=== PATIENT | female | born 2000 | race Hispanic/Latino ===

== ENCOUNTER 2019-01-20 00:40 | Emergency (ER) | payer OTHER ==
[2019-01-20 02:22] LABS: #Basophils 0.1 thou/uL (0.0-0.2); #Lymphocytes 2.7 thou/uL (1.20-3.40); #Monocytes 0.7 thou/uL (0.11-0.59); %Basophils 0.8 % (0.0-1.0); %Eosinophils 0.3 % (0.0-10.0); %Lymphocytes 28.4 % (28.0-48.0); %Monocytes 7.1 % (0.0-4.0); %Neutrophils 63.4 % (31.0-61.0); Hemoglobin 13.7 g/dL (12.0-16.0); Mean Corpuscular HGB CONC 34.7 g/dL (32.0-36.0); Mean Corpuscular Hemoglobin 32.8 pg (25.0-35.0); Mean Corpuscular Volume 94.6 fL (78.0-98.0); Mean Platelet Volume 8.3 fL (7.4-10.4); Platelet Count 206 thou/uL (130-400); Red Blood Cell (RBC) Count 4.18 mill/uL (4.00-5.20); White Blood Cell (WBC) Count 9.5 thou/uL (4.8-10.8)
[2019-01-20 03:01] LABS: ALT (SGPT) 42 U/L (8-55); AST (SGOT) 31 U/L (5-34); Albumin 4.4 g/dL (3.5-5.0); Alkaline Phosphatase 64 U/L (40-150); Anion Gap 14 mmol/L (10-20); BUN (Urea Nitrogen) 12 mg/dL (7.0-18.7); Bilirubin, Total 0.3 mg/dL (0.2-1.2); Calc. Creatinine Clearance 0 mL/min (70-130); Calcium 9.6 mg/dL (7.8-10.44); Carbon Dioxide 19 mmol/L (22-29); Chloride 105 mmol/L (98-107); Estimated GFR-MDRD Greater than 90; Glucose 87 mg/dL (70-105); Lipase 16 U/L (8-78); Potassium 3.2 mmol/L (3.5-5.1); Protein, Total 7.4 g/dL (6.0-8.3); Sodium 135 mmol/L (136-145)
[2019-01-20 03:53] LABS: Bilirubin Negative (Negative); Blood, Urine Negative (Negative); Clarity CLEAR (Clear); Glucose, Urine (Dipstick) Negative (Negative); Leukocyte Negative (Negative); Nitrite Negative (Negative); Protein, Urine (Dipstick) Negative (Neg-Trace); Specific Gravity, Urine 1.014 (1.002-1.036); Urobilinogen 0.2 mg/dL (0.2-1.0); pH, Urine 6.5 (5.0-9.0)
[2019-01-20 23:35] LABS: Chlamydia by PCR Not Detected (NotDetected); GC by PCR Not Detected (NotDetected)
== END 2019-01-20 04:07 | disposition home or self-care (01) ==
LOC: ERS 00:40
DX: O99.89 Other specified diseases and conditions complicating pregnancy, childbirth and the puerperium (principal); R10.32 Left lower quadrant pain; Z3A.01 Less than 8 weeks gestation of pregnancy
CPT/HCPCS: 36415; 80053; 81003; 83690; 84702; 85025; 87086; 87480; 87491; 87510; 87591; 87660; 99284

== ENCOUNTER 2019-09-14 01:18 | Day surgery (SDC) | payer OTHER ==
[2019-09-14 02:01] VITALS: BMI 26.5
[2019-09-14] MEDS ORDERED: hydrALAZINE 20 MG/ML VIAL SLOW IVP PRN (02:24)
--- NOTE | 2019-09-14 02:32 | PDOC.FPROB ---
FMR OB H&P: HPI - History of Present Illness Chief Complaint: back pain Indentification: 19 y/o @ 40.0 WGA History of Present Illness: Reports lower back pain that started around 9:30 tonight and is not relieved with position changes. She reports some abdominal cramping. Denies ctx, LOF, vaginal bleeding, d/c. Endorses movement. Primary Care Physician: Dr. Hammer FMR OB H&P: History - Past Medical History PMH: Denies - OB History OB History: G1 - Surgical History Sx History: Denies - Social History Social History: Denies tobacco, EtOH, or drug use - Family History Family History: Denies FMR OB H&P: Medications - Current Allergies/Adverse Reactions: Allergies Allergy/AdvReac Type Severity Reaction Status Date / Time sulfamethoxazole Allergy Verified 09/14/19 01:54 [From Bactrim] trimethoprim [From Bactrim] Allergy Verified 09/14/19 01:54 FMR OB H&P: ROS - Review of Systems General: denies: fever/chills, weight/appetite/sleep changes Eyes: denies: vision changes, double vision ENT: denies: nasal congestion, sore throat Cardiovascular: denies: chest pain, edema Respiratory: denies: cough, shortness of breath Gastrointestinal: reports: cramping. denies: nausea Genitourinary (Female): denies: vaginal bleeding, contractions Musculoskeletal: denies: pain, swelling Neurologic: denies: numbness, weakness Integumentary: denies: itching, rash Endocrine: denies: cold intolerance, heat intolerance FMR OB H&P: Vital Signs - Maternal Vital signs: BP 120/80, HR 96, RR 16 - Heart Tones Baseline: 130 Variability: moderate Acceleration: present Deceleration: absent Category: category 1 [place] contractions every: intermittent FMR OB H&P: Physical Exam - Physical Exam General: NAD, awake, alert and oriented HEENT: MMM, conjunctiva clear, grossly normal vision, grossly normal hearing Neck: supple, no LAD Heart: pulses present, no edema General: no respiratory distress Abdomen: soft, gravid, non-tender Musculoskeletal: normal gait and station, pulses present Neurological: no focal deficit Skin: good tugor, capillary refill <2 seconds Psychiatric: intact recent and remote memory, good judgement and insight - Pelvic Exam SVE: 1.5/-3 FMR OB H&P: A/P - Problem List (1) Irregular contractions Current Visit: Yes Status: Acute Code(s): O62.2 - OTHER UTERINE INERTIA Assessment and Plan: Pt not dilated and having irregular ctx that she isn't feeling -Gave labor precautions -Will d/c home -Encouraged fluid hydration -Continue f/u with Dr. Hammer and for IOL on 09/17. (2) Term Current Visit: Yes Status: Acute Code(s): Z34.90 - ENCNTR FOR SUPRVSN OF NORMAL , UNSP, UNSP TRIMESTER Disposition: d/c home with labor precautions Discussion: Date/Time: 09/14/19 0230 This H&P was discussed with Dr. Wilson who agrees with the above documentation and plan. Signature: Melodie Martin MD, PGY-3 Addendum - Attending - Attending Attestation Date/Time: 09/14/19 0241 I personally evaluated the patient and discussed the management with Dr. Martin. I agree with the History, Examination, Assessment and Plan documented above.
== END 2019-09-14 02:48 | disposition home or self-care (01) ==
LOC: L&D/OP 01:18
PROVIDERS: ATTEND Obstetrics & Gynecology
DX: O47.1 False labor at or after 37 completed weeks of gestation (principal); O48.0 Post-term pregnancy; Z3A.40 40 weeks gestation of pregnancy; Z88.1 Allergy status to other antibiotic agents; Z88.2 Allergy status to sulfonamides
CPT/HCPCS: 99282

== ENCOUNTER 2019-09-17 19:15 | Inpatient (IN) | payer OTHER ==
--- NOTE | 2019-09-17 18:07 | PDOC.LDHP ---
Labor and Delivery H&P Chief complaint: scheduled induction HPI: Pt is a 19yo G1 @ 40.3 here for IOL. 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 Current medications: pre-aspen vitamins, iron, other (valtrex 1 gm a day) Previous surgical history: none Allergies/Adverse Reactions: Allergies Allergy/AdvReac Type Severity Reaction Status Date / Time sulfamethoxazole Allergy Verified 09/14/19 01:54 [From Bactrim] trimethoprim [From Bactrim] Allergy Verified 09/14/19 01:54 Social history: none - Vaginal Exam cm dilated: 2 Effacement: 25% Station: -2 - OB Labs Blood type: O RH: positive Antibody Screen: negative HIV: negative RPR: negative HEPSAg: negative 1 hour GCT: negative GBS: negative Urine drug screen: negative Rubella: non-immune Additional Labs: +CT with negative retest - Plan Plan: admit to L&D, cervical ripening, labor augmentation if indicated, informed consent obtained, anesthesia consult for pain management
[~2019-09-17 19:15] MED LIST: Bupivacaine 0.25% 10 ML VIAL ONE
[2019-09-17] MEDS ORDERED: NS / Oxytocin 40 units/1000ml 1,000 ML IV PRN (19:59)
[2019-09-17] MEDS ORDERED: Butorphanol Tartrate 1 MG/ML VIAL SLOW IVP PRN (19:59)
[2019-09-17] MEDS ORDERED: NS w/ Oxytocin 10 units 500 ML IV SCH (19:59)
[2019-09-17] MEDS ORDERED: Lidocaine 1% (PF) 30 ML VIAL SC PRN (19:59)
[2019-09-17] MEDS ORDERED: Ibuprofen 800 MG TAB PO PRN (19:59)
[2019-09-17] MEDS ORDERED: Ondansetron PF 4 MG/2 ML Vial IVP PRN (19:59)
[2019-09-17] MEDS ORDERED: hydrALAZINE 20 MG/ML VIAL SLOW IVP PRN (19:59)
[2019-09-17] MEDS ORDERED: Promethazine HCl 25 MG/ML VIAL IM PRN (19:59)
[2019-09-17] MEDS ORDERED: Misoprostol 100 MCG TAB VAG SCH (19:59)
[2019-09-17] MEDS ORDERED: HYDROcodone/Acetaminophen 5/325 mg Tablet PO PRN ×2 (19:59)
[2019-09-17] MEDS: Lactated Ringer's 1,000 ML IV SCH (20:30)
[2019-09-17 21:06] LABS: Hemoglobin 11.2 g/dL (12.0-16.0); Mean Corpuscular Hemoglobin 29.5 pg (27.0-31.0); Mean Corpuscular Volume 86.9 fL (78.0-98.0); Mean Platelet Volume 10.7 fL (7.4-10.4); Platelet Count 182 thou/uL (130-400); RBC Distribution Width 12.7 % (11.5-14.5); Red Blood Cell (RBC) Count 3.81 mill/uL (4.20-5.40); White Blood Cell (WBC) Count 8.5 thou/uL (4.8-10.8)
[2019-09-17 21:28] VITALS: BMI 26.5
[2019-09-17 21:46] LABS: Syphilis Antibody Nonreactive (Nonreactive); Syphilis Antibody Index 0.02 S/CO (<1.00 Non-Reactive)
[2019-09-18 00:56] LABS: HBSAg Index 0.24 S/CO (0-0.99); Hep B Surf Ag Non-Reactive S/CO (NonReactive)
[2019-09-18] MEDS: Lactated Ringer's 1,000 ML IV SCH ×2 (04:57→18:16)
--- NOTE | 2019-09-18 08:01 | PDOC.LDPN ---
Labor & Delivery Progress Note - Subjective Subjective: comfortable - Objective Vital signs reviewed and normal: yes General: resting Dilation: 3 Effacement: 50% Station: -1 FHT: category 1 [place] contractions every: q3 AROM: clear fluid - Assessment (1) 40 weeks gestation of Code(s): Z3A.40 - 40 WEEKS GESTATION OF Current Visit: Yes Status : Acute Plan: continue plan of care
[2019-09-18] MEDS: Misoprostol 100 MCG TAB VAG SCH ×3 (10:37→18:16)
[2019-09-18] MEDS ORDERED: Fentanyl 4 mcg/Bup 0.1% Cadd 100 ML ONE (11:26)
[2019-09-18] MEDS ORDERED: EPHEDRINE 25 MG/5 ML SYRINGE SLOW IVP PRN (11:47)
[2019-09-18] MEDS ORDERED: Acetaminophen 325 MG TAB PO PRN (11:47)
[2019-09-18] MEDS ORDERED: Promethazine HCl 25 MG/ML VIAL IM PRN ×2 (11:47→23:39)
[2019-09-18] MEDS ORDERED: Lactated Ringer's 500 ML IV PRN (11:47)
[2019-09-18] MEDS ORDERED: Naloxone HCl 0.4 mg/ml Vial IVP PRN ×4 (11:47→23:39)
[2019-09-18] MEDS ORDERED: diphenhydrAMINE 50 MG/ML VIAL IVP PRN ×2 (11:47→23:39)
[2019-09-18] MEDS ORDERED: Ondansetron PF 4 MG/2 ML Vial IVP PRN ×2 (11:47→23:39)
[2019-09-18] MEDS ORDERED: Fentanyl 4 mcg/Bupivacaine 0.1% Cassette 100 ML EPIDURAL SCH (12:00)
[2019-09-18] MEDS ORDERED: Communication Order-Pharmacy FS SCH ×2 (12:00→23:45)
[2019-09-18] MEDS ORDERED: Bicitra 30 ML UDCUP ONE (22:14)
[2019-09-18] MEDS ORDERED: CEFAZOLIN 2 GM in Premix Bag 1 BAG IVPB SCH (22:45)
[2019-09-18] MEDS ORDERED: Bicitra 30 ML UDCUP PO SCH (22:45)
--- NOTE | 2019-09-18 22:47 | PDOC.LDPN ---
Labor & Delivery Progress Note - Subjective Subjective: painful contractions - Objective Vital signs reviewed and normal: yes General: breathing through contractions Dilation: 9 Station: 0 FHT: category 1 [place] contractions every: 2 - Assessment (1) 40 weeks gestation of Code(s): Z3A.40 - 40 WEEKS GESTATION OF Current Visit: Yes Status : Acute (2) Failure to progress in labor Code(s): O62.2 - OTHER UTERINE INERTIA Current Visit: Yes Status: Acute Plan: other -: I have been following the patient closely through nurse communication. The patient has had protracted labor from 8cm since 1600 today. Despite adequate contractions and position changes she has failed to achieve complete dilation to push. The patient was assessed by Dr. Wilson as well, with significant caput , zero station and 9cm. The recommendation for CS for arrest of dilation at 9cm was reviewed with patient.
[2019-09-18] MEDS ORDERED: Fentanyl 100 MCG/2 ML VIAL ONE (23:04)
[2019-09-18] MEDS ORDERED: Oxytocin 10 UNITS/ML VIAL ONE (23:20)
[2019-09-18] MEDS ORDERED: Ketorolac Tromethamine 30 MG/ML VIAL ONE (23:20)
[2019-09-18] MEDS ORDERED: Dexamethasone 4 mg/ml Vial ONE (23:20)
[2019-09-18] MEDS ORDERED: Ondansetron PF 4 MG/2 ML Vial ONE (23:20)
[2019-09-18] MEDS ORDERED: MORPHINE 5 MG/10 ML PF VIAL ONE (23:23)
[2019-09-18] MEDS ORDERED: Meperidine HCl/PF 25 MG/ML VIAL SLOW IVP PRN (23:39)
[2019-09-18] MEDS ORDERED: L&D-Morphine 4 MG/ML VIAL SLOW IVP PRN (23:39)
[2019-09-18] MEDS ORDERED: HYDROmorphone 2 MG/ML VIAL SLOW IVP PRN (23:39)
[2019-09-18] MEDS ORDERED: Promethazine HCl 25 MG SUPP PR PRN (23:39)
[2019-09-18] MEDS ORDERED: Ondansetron HCl/PF 4 MG/2 ML Vial IVP PRN (23:39)
[2019-09-18] MEDS ORDERED: Naloxone HCl 0.4 mg/ml Vial IV PRN (23:39)
--- NOTE | 2019-09-18 23:43 | PDOC.OPDEL ---
OB Operative/Delivery Note Delivery Dr/Surgeon: Harman Assist: Steve Pre-Delivery Diagnosis: arrest of dilation Procedure/Post Delivery Dx: primary low transverse CS Weeks gestation: 40 Anesthesia: epidural - Findings A Sex: male - 1 min: 9 - 5 min: 9 - Additional Findings/Plan Placenta delivered: manual removal findings: low transverse hysterotomy without extension, normal uterus, normal tubes, normal ovaries, other (caput noted, OP presentation) Estimated blood loss: 700ml Post delivery plan: routine recovery
[2019-09-18] MEDS ORDERED: Azithromycin 500 MG in Sodium Chloride 0.9% 250 ML 250 ML IVPB SCH (23:59)
--- NOTE | 2019-09-19 00:16 | OP ---
DATE OF PROCEDURE: 09/18/2019 PREOPERATIVE DIAGNOSES: 1. 40 weeks and 4 days, undergoing induction of labor. 2. Arrest of dilation at 9 cm. POSTOPERATIVE DIAGNOSIS: Status post primary section. DROP HAMMER SET UP OPERATOR: MD Steve ANESTHESIA: Epidural per Dr. Sullivan. COMPLICATIONS: None. EBL: 700 mL. QBL: Pending. OPERATIVE FINDINGS: 1. Vigorous male , Apgars 9 and 9. Weight pending at the time of the dictation to nursery. 2. Low-transverse hysterotomy without extension. 3. delivered from occiput posterior presentation with significant caput noted. 4. Normal-appearing uterus, tubes, and ovaries bilaterally. 5. Fundus firm after delivery of the placenta. 6. Surgical site hemostatic. DESCRIPTION OF PROCEDURE: The patient was taken back to the OR with IV fluids running. When she was in the OR, she was placed in dorsal supine position. Morrell catheter and epidural anesthesia had previously been placed. The patient was prepped and draped in normal fashion for sections and the surgeons were gowned and gloved. Anesthesia was tested and found to be adequate. A Pfannenstiel skin incision was made with a scalpel. Skin incision was carried down through the subcutaneous tissue to the fascia. Once the fascia was reached, it was incised in the midline and extended superolaterally using curved Broussard scissors. Elsa clamps were placed at the superior border of the fascia, which was sharply and bluntly dissected off the rectus abdominis muscles in similar fashion. They were placed at the inferior border the fascia, which was dissected off the rectus muscles down towards the level of the pubic symphysis. The rectus muscles were bluntly entered in the midline. The peritoneum was bluntly entered and stretched laterally. An Faustino O retractor was placed into the peritoneal cavity for retraction, visualization, and protection of the wound. A bladder flap was created using Metzenbaum scissors and the bladder was dissected away from the planned hysterotomy site. Hysterotomy was made with a scalpel. The hysterotomy was bluntly entered and stretched using a Brito maneuver. The infant was then delivered without difficulty through the incision. The nose and mouth were suctioned. The cord was doubly clamped and cut, and the was handed off to special care nurse in attendance. Cord blood was collected. The placenta was delivered. The uterus was exteriorized, massaged firm, and cleared of clot and debris. The uterus was returned to the abdominal cavity what was noted to be confirming. The hysterotomy was reapproximated with Monocryl suture in a running locked fashion. After the hysterotomy was closed, it was inspected with no areas of bleeding noted. The hysterotomy and paracolic gutters were then irrigated and suctioned dry. Hysterotomy was inspected again with no bleeding noted. The Faustino O retractor was taken out of the abdominal cavity. The rectus muscles and fascia were inspected with no areas of bleeding noted. The fascia was then reapproximated with PDS suture from corner to corner. The subcutaneous tissue was then irrigated and dried. Any small areas of bleeding were controlled with Bovie cauterization. The subcutaneous tissue was reapproximated with a series of 3 interrupted plain gut sutures. The skin was closed with 4-0 Monocryl and dressed with Dermabond dressing. The patient tolerated the procedure well. There were no complications and counts were correct. Job ID: [id number]
[2019-09-19] MEDS ORDERED: Meperidine HCl/PF 25 MG/ML VIAL ONE (01:38)
[2019-09-19] MEDS ORDERED: Bisacodyl 10 MG SUPP PR PRN (01:59)
[2019-09-19] MEDS ORDERED: Lanolin Ointment 7 GM TUBE TOP PRN (01:59)
[2019-09-19] MEDS ORDERED: Measles/Mumps/Rubella 10 MCG/0.5 ML VIAL SC ONE (01:59)
[2019-09-19] MEDS ORDERED: diphenhydrAMINE 25 MG CAP PO PRN (01:59)
[2019-09-19] MEDS ORDERED: Ondansetron PF 4 MG/2 ML Vial IVP PRN (01:59)
[2019-09-19] MEDS ORDERED: Acetaminophen 325 MG TAB PO PRN (01:59)
[2019-09-19] MEDS ORDERED: Simethicone Chewable 80 MG TAB PO PRN (01:59)
[2019-09-19] MEDS ORDERED: HYDROcodone/Acetaminophen 5/325 mg Tablet PO PRN (01:59)
[2019-09-19] MEDS ORDERED: hydrALAZINE 20 MG/ML VIAL SLOW IVP PRN (01:59)
[2019-09-19] MEDS: Ibuprofen 800 MG TAB PO SCH ×3 (05:04→21:42)
[2019-09-19 06:47] LABS: Hemoglobin 9.1 g/dL (12.0-16.0); Mean Corpuscular HGB CONC 33.6 g/dL (32.0-36.0); Mean Corpuscular Hemoglobin 29.3 pg (27.0-31.0); Mean Corpuscular Volume 87.2 fL (78.0-98.0); Mean Platelet Volume 10.2 fL (7.4-10.4); Platelet Count 145 thou/uL (130-400); RBC Distribution Width 12.8 % (11.5-14.5); White Blood Cell (WBC) Count 21.1 thou/uL (4.8-10.8)
[2019-09-19] MEDS: Misoprostol 100 MCG TAB VAG SCH (07:58)
[2019-09-19] MEDS: Ketorolac Tromethamine 30 MG/ML VIAL IVP SCH ×4 (08:00→22:43)
[2019-09-19] MEDS: Docusate Calcium (SURFAK) 240 MG CAP PO SCH ×2 (08:41→21:42)
[2019-09-19] MEDS: Prenatal Vitamin 1 TAB PO SCH (08:41)
[2019-09-19] MEDS: Ferrous Sulfate 325 MG TAB PO SCH ×2 (08:41→21:42)
--- NOTE | 2019-09-19 10:57 | PDOC.PP ---
Post Progress Note Post Day #: 1 Subjective: doing well, baby in nursery, no concerns PO intake tolerated: no Flatus: no Ambulation: no Vital Signs (12 hours) Temp Pulse Resp BP Pulse Ox 09/19/19 08:26 98.8 F 77 20 123/61 98 Weight Weight 127 lb - Physical Examination General: NAD Respiratory: non-labored breathing Abdominal: no distention Neurological: no gross focal deficits Psychiatric: A&Ox3, normal affect Result Diagrams: 09/19/19 06:31 Additional Labs: Post Labs Blood Type O POSITIVE 09/17/19 20:54 Hep Bs Antigen Non-Reactive S/CO (NonReactive) 09/17/19 20:54 (1) 40 weeks gestation of Code(s): Z3A.40 - 40 WEEKS GESTATION OF Status: Acute (2) Failure to progress in labor Code(s): O62.2 - OTHER UTERINE INERTIA Status: Acute (3) delivery delivered Code(s): O82 - ENCOUNTER FOR DELIVERY WITHOUT INDICATION Status: Acute - Assessment/Plan POD1 doing well, advanced diet slowly reviewed.
[2019-09-19] MEDS: HYDROcodone/Acetaminophen 5/325 mg Tablet PO PRN ×2 (12:51→18:14)
[2019-09-19] MEDS: Lactated Ringer's 1,000 ML IV SCH (21:38)
[2019-09-20] MEDS: HYDROcodone/Acetaminophen 5/325 mg Tablet PO PRN ×3 (04:49→20:00)
[2019-09-20] MEDS: Ibuprofen 800 MG TAB PO SCH ×3 (05:44→21:13)
--- NOTE | 2019-09-20 08:46 | PDOC.PP ---
Post Progress Note Post Day #: 2 Subjective: doing well, merrill regular diet yesterday, moving around the room well PO intake tolerated: yes Flatus: yes Ambulation: yes Vital Signs (12 hours) Temp Pulse Resp BP BP Pulse Ox 09/20/19 08:26 99.0 F 73 20 103/55 L 97 09/20/19 04:49 97.5 F L 80 12 111/64 95 09/20/19 01:28 98.5 F 68 12 100/59 L 96 Weight Weight 127 lb - Physical Examination General: NAD Respiratory: non-labored breathing Abdominal: no distention Fundus firm & at: below umb Skin: CS incision dry & intact Neurological: no gross focal deficits Psychiatric: A&Ox3, normal affect Result Diagrams: 09/19/19 06:31 Additional Labs: Post Labs Blood Type O POSITIVE 09/17/19 20:54 Hep Bs Antigen Non-Reactive S/CO (NonReactive) 09/17/19 20:54 (1) 40 weeks gestation of Code(s): Z3A.40 - 40 WEEKS GESTATION OF Status: Acute (2) Failure to progress in labor Code(s): O62.2 - OTHER UTERINE INERTIA Status: Acute (3) delivery delivered Code(s): O82 - ENCOUNTER FOR DELIVERY WITHOUT INDICATION Status: Acute - Assessment/Plan POD2 doing well, post op pain meds reviewed, plan for DC tomorrow.
[2019-09-20] MEDS: Prenatal Vitamin 1 TAB PO SCH (08:49)
[2019-09-20] MEDS: Ferrous Sulfate 325 MG TAB PO SCH ×2 (08:49→21:13)
[2019-09-20] MEDS: Docusate Calcium (SURFAK) 240 MG CAP PO SCH ×2 (08:49→21:13)
[2019-09-21] MEDS: Ibuprofen 800 MG TAB PO SCH (05:55)
--- NOTE | 2019-09-21 06:02 | PDOC.PP ---
Post Progress Note Post Day #: 3 Subjective: Doing well. OK for DC to home PO intake tolerated: yes Flatus: yes Ambulation: yes Vital Signs (12 hours) Temp Pulse Resp BP Pulse Ox 09/21/19 00:00 98.7 F 76 14 110/63 98 09/20/19 19:12 99.0 F 90 16 110/61 97 Weight Weight 127 lb Vitals reviewed for last 24 hrs: afebrile - Physical Examination General: NAD Abdominal: lochia, no distention, appropriately TTP Extremities: negative homans (B) Skin: CS incision dry & intact (sutured and DB closed) Neurological: no gross focal deficits Psychiatric: A&Ox3, normal affect Result Diagrams: 09/19/19 06:31 Additional Labs: Post Labs Blood Type O POSITIVE 09/17/19 20:54 Hep Bs Antigen Non-Reactive S/CO (NonReactive) 09/17/19 20:54 (1) delivery delivered Code(s): O82 - ENCOUNTER FOR DELIVERY WITHOUT INDICATION Status: Acute - Assessment/Plan Plan: POD 3 stable and well: Home today Wound check in 2 weeks
[2019-09-21] MEDS: HYDROcodone/Acetaminophen 5/325 mg Tablet PO PRN (06:07)
[2019-09-21] MEDS ORDERED: Measles/Mumps/Rubella 10 MCG/0.5 ML VIAL SC ONE (09:00)
[2019-09-21] MEDS: Docusate Calcium (SURFAK) 240 MG CAP PO SCH (09:22)
[2019-09-21] MEDS: Ferrous Sulfate 325 MG TAB PO SCH (09:22)
[2019-09-21] MEDS: Prenatal Vitamin 1 TAB PO SCH (09:22)
[2019-09-21 11:38] VITALS: BP 122/82; TEMP 98.3
== END 2019-09-21 12:32 | disposition home or self-care (01) | DRG 787 ==
LOC: L&D 19:33 → 3SE 09-19 07:44
PROVIDERS: ADMIT Obstetrics & Gynecology; ATTEND Obstetrics & Gynecology
PROC: 10D00Z1 Extraction of Products of Conception, Low, Open Approach (ICD-10-PCS; principal; 2019-09-18)
DX: O62.0 Primary inadequate contractions (principal); O98.52 Other viral diseases complicating childbirth; Z3A.40 40 weeks gestation of pregnancy; Z37.0 Single live birth; O64.0XX0 Obstructed labor due to incomplete rotation of fetal head, not applicable or unspecified; B00.9 Herpesviral infection, unspecified; Z79.899 Other long term (current) drug therapy
CPT/HCPCS: 36415; 85027; 86780; 86850; 86900; 86901; 87340; 90707; 99282; J0595; J0690; J1100; J1885; J2175; J2274; J2405; J2550; J2590; J3010; Q0163; S0020